=== PATIENT | male | born 1975 | race Caucasian/White ===

== ENCOUNTER 2020-09-02 20:55 | Emergency (ER) | payer OTHER ==
[2020-09-02 21:03] VITALS: TEMP 98.2; BMI 29.2
[2020-09-02 23:27] LABS: BASO % 2.6 % (0-2.0); EOS % 2.8 % (0-4.5); HEMATOCRIT 39.4 % (35.4-49); HEMOGLOBIN 13.4 GM/dL (11.7-16.9); LYMPH % 34.8 % (8-40); MCH 27.8 pg (25.7-33.7); MCHC 34.1 g/dl (32.0-35.9); MEAN CELL VOLUME 81.6 fl (80-96); MEAN PLT VOLUME 8.4 fl (7.5-11.1); MONO % 14.2 % (3.8-10.2); NEUT % 45.6 % (42.8-82.8); PLATELET COUNT 213 K/MM3 (134-434); RBC 4.83 M/mm3 (4.00-5.60); RDW 11.7 % (11.9-15.9); WHITE BLOOD COUNT 5.7 K/mm3 (4.0-10.0)
[2020-09-02 23:35] LABS: PROTHROMBIN TIME (PATIENT) 12.1 SEC (9.7-13.0)
[2020-09-02 23:38] LABS: ACTIVATED PTT 29.5 SECONDS (25.2-36.5)
[2020-09-03 01:13] LABS: ALBUMIN 4.1 g/dl (3.4-5.0); ALK PHOS 80 U/L (45-117); ANION GAP 10 MMOL/L (8-16); BILIRUBIN,TOTAL 0.4 mg/dL (0.2-1); CALCIUM 9.4 mg/dL (8.5-10.1); CHLORIDE 106 mmol/L (98-107); CO2 24 mmol/L (21-32); CREATININE 1.3 mg/dL (0.55-1.3); GLUCOSE,RANDOM 94 mg/dL (74-106); SGOT/AST 21 U/L (15-37); SGPT/ALT 30 U/L (13-61); SODIUM 140 mmol/L (136-145); TOT PROT 7.5 g/dl (6.4-8.2)
[2020-09-03 01:24] VITALS: BP 135/88; PULSE 78
== END 2020-09-03 03:04 | disposition home or self-care (01) ==
LOC: JER 20:55
DX: R07.9 Chest pain, unspecified (principal)
CPT/HCPCS: 36415; 71046-TC-FY; 80053; 83880; 84484; 85025; 85610; 85730; 93005; 93010; 99285-25